=== PATIENT | male | born 1995 | race Caucasian/White ===

== ENCOUNTER 2021-01-03 22:35 | Emergency (ER) | payer BC ==
[~2021-01-03] VITALS: Ht 165.1 cm; Wt 68.0 kg
--- NOTE | 2021-01-03 22:40 | NUR ---
pt bibself c/o throat swelling s/p accidental ingestion of peanuts. Pt aaox4 breathing evenly and unlabored. Per pt, he took 3 benadryl, threw up, took 3 more, threw up, and then took two more. Pt attached to monitor saturating 99% RA. Skin is warm and dry. call ligth within reach. Will continue to monitor.
[2021-01-03] MEDS ORDERED: ONDANSETRON 4 MG TAB.RAPDIS PO ONE (23:00)
[2021-01-03] MEDS ORDERED: FAMOTIDINE (20 MG) 20 MG TABLET PO ONE (23:00)
[2021-01-03] MEDS ORDERED: predniSONE 10 MG TABLET PO ONE (23:00)
[2021-01-03] MEDS ORDERED: predniSONE 20 MG TABLET ONE (23:02)
[2021-01-03] MEDS ORDERED: FAMOTIDINE (20 MG) 20 MG TABLET ONE (23:02)
[2021-01-03] MEDS ORDERED: ONDANSETRON 4 MG TAB.RAPDIS ONE (23:03)
[2021-01-04] MEDS ORDERED: EPIN0.3P3 IJ (00:38)
--- NOTE | 2021-01-04 00:41 | NUR ---
Patient discharged to home in stable condition. Written and verbal after care instructions given. Patient verbalizes understanding of instruction.Pt ambulatory with a steady gait
[2021-01-04 00:46] VITALS: BP 125/77
== END 2021-01-04 00:41 | disposition home or self-care (01) ==
LOC: ER 22:42
DX: T78.1XXA Other adverse food reactions, not elsewhere classified, initial encounter (principal); X58.XXXA Exposure to other specified factors, initial encounter
CPT/HCPCS: 99284; J7512 ×2; Q0162